=== PATIENT | female | born 1960 | race Caucasian/White ===

== ENCOUNTER 2024-04-18 10:08 | Emergency (ER) | payer BC ==
[2024-04-18 15:22] VITALS: BP 114/50; PULSE 81
== END 2024-04-18 17:00 | disposition left against medical advice (07) ==
LOC: DL.ED 10:08
DX: Z53.21 Procedure and treatment not carried out due to patient leaving prior to being seen by health care provider (principal)
CPT/HCPCS: 87081; 87430